=== PATIENT | male | born 1995 | race African-American/Black ===

== ENCOUNTER 2018-03-12 23:43 | Emergency (ER) | payer OTHER ==
[~2018-03-12] VITALS: Ht 182.9 cm; Wt 94.4 kg
[2018-03-13] MEDS ORDERED: HYDROmorphone PF 1 MG/ML DISP.SYRIN IV PRN (00:15)
[2018-03-13] MEDS ORDERED: HYDROmorphone PF 2 MG/ML VIAL ONE (00:42)
--- NOTE | 2018-03-13 00:42 | PHYS DOC ---
Past History Past Medical History: No Pertinent History Past Surgical History: No Surgical History Smoking: Non-smoker Alcohol Use: Occasionally Drug Use: None Adult General Chief Complaint Chief Complaint: abdominal pain HPI HPI 23-year-old male presenting to the emergency department today with nausea vomiting abdominal pain over the past 8 hours. This all started this afternoon with feeling generalized nausea and vomiting. His vomitus is nonbilious nonbloody. He then a few hours later developed a sharp shooting abdominal pain in the periumbilical region. It is nonradiating and nonmigratory. He denies any history of surgeries in the past. He denies being allergic to any medications. Review of systems is negative for chest pain fevers chills or any new rashes. All other review of systems is negative unless otherwise noted in history of present illness. ED course: 23-year-old male presenting to the emergency department today with nausea vomiting abdominal pain. On arrival vitals:. On examination the patient is well-appearing and nontoxic.. Mild tenderness in the periumbilical region without rebound tenderness or guarding. Blood work sent. IV established. Nausea and pain medications administered. CT the abdomen pelvis ordered. Blood work unremarkable. On reexamination the patient's feeling better. Abdomen is soft and nontender on reexam. CT abdomen pelvis shows no acute abnormalities.The patient has been examined and was not found to have an emergency medical condition. The patient was then discharged home in stable condition to follow up with their primary care physician over the next 2-3 days. They were to return if their symptoms worsened or if they were concerned for any reason. Face -to-face discharge instructions and return precautions were given. Patient's questions were answered to their satisfaction. Patient is comfortable with plan. Review of Systems Review of Systems SEE ABOVE. Current Medications Current Medications Current Medications Medications (Trade) Dose Ordered Sig/Radha Start Time Stop Time Status Last Admin Dose Admin Hydromorphone HCl (Dilaudid) 0.5 mg PRN Q30MIN PRN 03/13/18 00:15 Ondansetron HCl (Zofran) 4 mg 1X ONCE 03/13/18 01:00 03/13/18 01:01 Sodium Chloride 1,000 ml @ 1,000 mls/hr 1X ONCE 03/13/18 01:00 03/13/18 01:59 Allergies Allergies Allergies Coded Allergies Type Severity Reaction Last Updated Verified No Known Drug Allergies 03/13/18 No Physical Exam Physical Exam SEE ABOVE Constitutional: Well developed, well nourished, no acute distress, non-toxic appearance. [] HENT: Normocephalic, atraumatic, bilateral external ears normal, oropharynx moist, no oral exudates, nose normal. [] Eyes: PERRLA, EOMI, conjunctiva normal, no discharge. [] Neck: Normal range of motion, no tenderness, supple, no stridor. [] Cardiovascular:Heart rate regular rhythm, no murmur [] Lungs & Thorax: Bilateral breath sounds clear to auscultation [] Abdomen: Bowel sounds normal, soft, no masses, no pulsatile masses. [] Skin: Warm, dry, no erythema, no rash. [] Back: No tenderness, no CVA tenderness. [] Extremities: No tenderness, no cyanosis, no clubbing, ROM intact, no edema. [] Neurologic: Alert and oriented X 3, normal motor function, normal sensory function, no focal deficits noted. [] Psychologic: Affect normal, judgement normal, mood normal. [] EKG EKG [] Radiology/Procedures Radiology/Procedures [] Course & Med Decision Making Course & Med Decision Making Pertinent Labs and Imaging studies reviewed. (See chart for details) [] Dragon Disclaimer Dragon Disclaimer This electronic medical record was generated, in whole or in part, using a voice recognition dictation system. Departure Departure: Impression: Primary Impression: Nausea and vomiting Additional Impression: Abdominal pain Disposition: 01 HOME, SELF-CARE Condition: STABLE Patient Instructions: Abdominal Pain Additional Instructions: Thank you for allowing us to participate in your care today. Followup with your primary care physician in 3 days if your symptoms do not improve. Call your Primary Doctor tomorrow and inform them of your visit today. If you do not have a primary care provider you can ask for a list of our primary care providers. Return to the emergency department you have any new or concerning findings. This should be evaluated by the primary care physician and any necessary consulting services for continued management within a few days after discharge. Return to emergency room if you have any new or concerning symptoms including but not limited to fever, chills, nausea, vomiting, intractable pain, any new rashes, chest pain, shortness of air, uncontrolled bleeding, difficulty breathing, and/or vision loss. If at any time, you are having difficulty getting into your primary care doctor or a specialist, return to the emergency department. You may have been prescribed medication that can change in your level of thinking and ability to operate machinery. These medications include hydrocodone and Ativan. Also, Benadryl has been known to do this as well. Be sure to check with your pharmacist and ask if the medications you've prescribed can affect your level of consciousness. I recommend not operating heavy machinery or driving while on medication such as these. Scripts Ondansetron Hcl (ZOFRAN) 4 Mg Tablet 1 TAB PO PRN Q6HRS Y for NAUSEA, #6 TAB Prov: CORINNE THAKKAR MD 03/13/18 Hydrocodone Bit/Acetaminophen (HYDROCODONE-APAP 5-325 ) 1 Each Tablet 1 TAB PO PRN Q6HRS Y for PAIN, #10 TAB 0 Refills Prov: CORINEN THAKKAR MD 03/13/18 Problem Qualifiers CORINNE THAKKAR MD Mar 13, 2018 00:42
[2018-03-13] MEDS ORDERED: HYDROmorphone PF 2 MG/ML VIAL IV PRN (00:45)
[2018-03-13 00:52] LABS: BASO % 0 % (0-3); EOS # 0.1 x10^3/uL (0.0-0.7); EOS % 1 % (0-3); HEMOGLOBIN 14.6 g/dL (13.0-17.5); LYMPH # 0.6 x10^3/uL (1.0-4.8); LYMPH % 9 % (24-48); MEAN CORPUSCULAR HEMOGLOBIN 22 pg (25-35); MEAN CORPUSCULAR HGB CONC 32 g/dL (31-37); MEAN CORPUSCULAR VOLUME 69 fL (79-100); MONO # 0.4 x10^3/uL (0.0-1.1); MONO % 6 % (0-9); NEUT # 5.7 x10^3uL (1.8-7.7); NEUT % 84 % (31-73); PLATELET COUNT 191 x10^3/uL (140-400); RED BLOOD COUNT 6.72 x10^6/uL (4.30-5.70); RED CELL DISTRIBUTION WIDTH 15.6 % (11.5-14.5); WHITE BLOOD COUNT 6.8 x10^3/uL (4.0-11.0)
[2018-03-13] MEDS ORDERED: IV NORMAL SALINE 1,000ML 1,000 ML IV ONE (01:00)
[2018-03-13] MEDS ORDERED: ONDANSETRON PF 4 MG/2 ML VIAL. IV ONE (01:00)
[2018-03-13 01:07] LABS: ALBUMIN 4.4 g/dL (3.4-5.0); CALCIUM 9.4 mg/dL (8.5-10.1); CREATININE 1.3 mg/dL (0.7-1.3); DIRECT BILIRUBIN 0.2 mg/dL (0.0-0.2); GFR 83.5; POTASSIUM 3.8 mmol/L (3.5-5.1); TOTAL BILIRUBIN 0.7 mg/dL (0.2-1.0); TOTAL PROTEIN 8.2 g/dL (6.4-8.2)
[2018-03-13] MEDS ORDERED: IOHEXOL 240 MG/ML 50ML VIAL. ONE (01:43)
[2018-03-13] MEDS ORDERED: CONTRAST GIVEN MC PRN (02:45)
[2018-03-13 02:48] LABS: HYPOCHROMIA SLIGHT; MICROCYTOSIS MOD; OVALOCYTES OCC; PLT ESTIMATE ADEQUATE (ADEQUATE); POLYCHROMASIA SLIGHT; TARGET CELLS OCC
[2018-03-13] MEDS ORDERED: IOHEXOL 300 MG/ML 75 ML VIAL. IV ONE (03:00)
[2018-03-13] MEDS ORDERED: IOHEXOL 240 MG/ML 50ML VIAL. PO ONE (03:00)
--- NOTE | 2018-03-13 03:23 | RAD ---
CT abdomen and pelvis with contrast: Reason for examination: Umbilical pain with nausea and vomiting. Helical images were obtained through the abdomen and pelvis with intravenous administration of 75 cc Omnipaque 300 and oral contrast administration of 30 cc Omnipaque 240. Reconstruction was performed in sagittal and coronal planes. The lung bases are clear. The heart size is normal with no pericardial effusion seen. No abnormality seen at the liver, gallbladder, spleen, adrenal glands or pancreas. The abdominal aorta and inferior vena cava show no abnormalities. The intestinal tract shows a few diverticuli in the sigmoid colon. No abnormality seen at the appendix. The small intestinal tract shows no abnormally dilated loops of bowel or thickened bowel wall and no evidence of bowel obstruction. The kidneys show no renal masses or hydronephrosis. No abnormality seen at the bladder, prostate gland or seminal vesicles. No free fluid or free air is seen in the abdomen or pelvis. No acute bony abnormalities are seen. IMPRESSION: No abnormality seen at the appendix. No acute abnormality seen in the abdomen or pelvis. Exposure: One or more of the following individualized dose reduction techniques were utilized for this examination: 1. Automated exposure control 2. Adjustment of the mA and/or kV according to patient size 3. Use of iterative reconstruction technique. Electronically signed by: Steffanie Stapleton MD (03/13/2018 3:19 AM) [facility]
[2018-03-13] MEDS ORDERED: HYDR-2758 PO (03:28)
[2018-03-13] MEDS ORDERED: ONDA4TAB7 PO (03:28)
[2018-03-13 03:49] VITALS: BP 111/43
== END 2018-03-13 03:53 | disposition home or self-care (01) ==
LOC: ER 23:43
DX: R11.2 Nausea with vomiting, unspecified (principal); R10.84 Generalized abdominal pain; R10.13 Epigastric pain
CPT/HCPCS: 36415; 74177; 80048; 80076; 83690; 85025; 96361; 96374; 96375; 99285; J1170; J2405; Q9966; Q9967; J7030

== ENCOUNTER 2020-03-29 17:48 | Emergency (ER) | payer OTHER ==
[~2020-03-29] VITALS: Ht 182.9 cm; Wt 88.0 kg
[~2020-03-29 17:48] MED LIST: HYDR-2155 PO; ONDA4TAB7 PO
--- NOTE | 2020-03-29 18:12 | PHYS DOC ---
Past History Past Medical History: No Pertinent History Past Surgical History: No Surgical History Smoking: Non-smoker Alcohol Use: Occasionally Drug Use: None General Adult EDM: Chief Complaint: CHEST PAIN HPI: HPI: 25M no sig PMH p/w anterior sharp CP since last night. No SOA, palpitations, nausea, vomiting. Reports recent life stressors. No aggravating or alleviating factors. Review of Systems: Review of Systems: Constitutional: Denies fever or chills Eyes: Denies change in visual acuity HENT: Denies nasal congestion or sore throat Respiratory: Denies cough or shortness of breath Cardiovascular: REports CP. GI: Denies abdominal pain, nausea, vomiting, bloody stools or diarrhea : Denies dysuria Musculoskeletal: Denies back pain or joint pain Integument: Denies rash Neurologic: Denies headache, focal weakness or sensory changes Endocrine: Denies polyuria or polydipsia Lymphatic: Denies swollen glands Psychiatric: Denies depression or anxiety Heart Score: HEART Score for Chest Pain: HEART Score for Chest Pain Response (Comments) Value History Slighlty/Non-Suspicious 0 ECG Normal 0 Age < 45 0 Risk Factors No Risk Factors 0 Troponin < Normal Limit 0 Total 0 Risk Factors: Risk Factors: DM, Current or recent (<one month) smoker, HTN, HLP, family history of CAD, obesity. Risk Scores: Score 0 - 3: 2.5% MACE over next 6 weeks - Discharge Home Score 4 - 6: 20.3% MACE over next 6 weeks - Admit for Clinical Observation Score 7 - 10: 72.7% MACE over next 6 weeks - Early Invasive Strategies Allergies: Allergies: Allergies Coded Allergies Type Severity Reaction Last Updated Verified No Known Drug Allergies 03/13/18 No Physical Exam: PE: Constitutional: Well developed, well nourished, no acute distress, non-toxic appearance. [] HENT: Normocephalic, atraumatic, bilateral external ears normal, oropharynx moist, no oral exudates, nose normal. [] Eyes: PERRLA, EOMI, conjunctiva normal, no discharge. [] Neck: Normal range of motion, no tenderness, supple, no stridor. [] Cardiovascular:Heart rate regular rhythm, no murmur [] Lungs & Thorax: Bilateral breath sounds clear to auscultation [] Abdomen: Bowel sounds normal, soft, no tenderness, no masses, no pulsatile masses. [] Skin: Warm, dry, no erythema, no rash. [] Back: No tenderness, no CVA tenderness. [] Extremities: No tenderness, no cyanosis, no clubbing, ROM intact, no edema. [] Neurologic: Alert and oriented X 3 Psychologic: Affect normal, judgement normal, mood normal. [] EKG: EKG: NSR. HR 74. Nml intervals. No STEMI. INterp by me. Radiology/Procedures: Radiology/Procedures: PROCEDURE: CHEST PA & LATERAL INDICATION: Chest pain COMPARISON: None. FINDINGS: 2 view of chest obtained. No focal airspace consolidation. Cardiomediastinal contour unremarkable. No acute osseous abnormality. IMPRESSION: * No focal airspace consolidation or edema. Electronically signed by: Mkia Richardson MD (03/29/2020 6:26 PM) [id number] Course & Med Decision Making: Course & Med Decision Making Pertinent Labs and Imaging studies reviewed. (See chart for details) 25M p/w atypical CP. No other assoc Sx. EKG without acute injury pattern. Labs unrevealing, trop neg. Remains well appearing and nontoxic. Suspect some component of stress/anxiety. Will DC home with outpatient FU. Return rpecautions given. Yolanda Disclaimer: Yolanda Disclaimer: This electronic medical record was generated, in whole or in part, using a voice recognition dictation system. Departure Departure: Impression: Primary Impression: Atypical chest pain Disposition: HOME, SELF-CARE Condition: STABLE Referrals: TYRON KAUR (PCP) LINA GUTIÉRREZ DO March 29, 2020 18:12
[2020-03-29 18:17] VITALS: BP 123/91
[2020-03-29 18:21] LABS: BASO % 1 % (0-3); EOS % 1 % (0-3); HEMATOCRIT 43.3 % (39.0-53.0); HEMOGLOBIN 13.8 g/dL (13.0-17.5); LYMPH % 40 % (24-48); MEAN CORPUSCULAR HEMOGLOBIN 22 pg (25-35); MEAN CORPUSCULAR HGB CONC 32 g/dL (31-37); MEAN CORPUSCULAR VOLUME 70 fL (79-100); MONO # 0.4 x10^3/uL (0.0-1.1); MONO % 8 % (0-9); NEUT # 2.6 x10^3uL (1.8-7.7); NEUT % 51 % (31-73); PLATELET COUNT 220 x10^3/uL (140-400); RED BLOOD COUNT 6.18 x10^6/uL (4.30-5.70); RED CELL DISTRIBUTION WIDTH 16.9 % (11.5-14.5); WHITE BLOOD COUNT 5.1 x10^3/uL (4.0-11.0)
[2020-03-29 18:27] LABS: CREATININE 1.1 mg/dL (0.7-1.3); GFR 99.5; POTASSIUM 3.4 mmol/L (3.5-5.1)
--- NOTE | 2020-03-29 18:30 | RAD ---
INDICATION: Chest pain COMPARISON: None. FINDINGS: 2 view of chest obtained. No focal airspace consolidation. Cardiomediastinal contour unremarkable. No acute osseous abnormality. IMPRESSION: * No focal airspace consolidation or edema. Electronically signed by: Mika Richardson MD (03/29/2020 6:26 PM) [id number]
[2020-03-29 18:32] LABS: ALBUMIN 4.2 g/dL (3.4-5.0); ALBUMIN/GLOBULIN RATIO 1.1 (1.0-1.7); TOTAL BILIRUBIN 0.9 mg/dL (0.2-1.0); TOTAL PROTEIN 7.9 g/dL (6.4-8.2)
[2020-03-29 18:39] LABS: ANISOCYTOSIS SLIGHT; HYPOCHROMIA SLIGHT; MICROCYTOSIS PRESENT; OVALOCYTES FEW; PLT ESTIMATE ADEQUATE (ADEQUATE); POIKILOCYTOSIS SLIGHT; POLYCHROMASIA SLIGHT; TEAR DROP CELLS OCC
--- NOTE | 2020-03-30 03:55 | EKG ---
[address] [address] Test Date: 2020-03-29 Test Time: 17:55:55 Pat Name: KURT WOOTEN Department: Room: Gender: M [employer]: : 1995 Requested By: LINA GUTIÉRREZ Order Number: [id number] Reading MD: Larry Savage Measurements Intervals Portal Rate: 74 P: 41 AR: 166 QRS: 22 QRSD: 84 T: 20 QT: 360 QTc: 404 Interpretive Statements SINUS ARRHYTHMIA Electronically Signed On 03-30-2020 8:22:27 CDT by Larry Savage
== END 2020-03-29 19:08 | disposition home or self-care (01) ==
LOC: ER 17:48
DX: R07.89 Other chest pain (principal)
CPT/HCPCS: 36415; 71046; 80053; 83690; 83735; 84484; 85025; 93005; 99285